=== PATIENT | female | born 1945 | race Caucasian/White ===

== ENCOUNTER 2017-07-15 23:11 | Emergency (ER) | payer MEDICARE, BC ==
[~2017-07-15] VITALS: Ht 160 cm; Wt 75.9 kg
[2017-07-15 23:15] VITALS: BP 151/77; TEMP 98.7
[2017-07-15] MEDS ORDERED: GLUCOPHAGE500 MG/TAB PO (23:23)
[2017-07-15] MEDS ORDERED: GLUCOSAMINE & C1 CA2 PO (23:23)
[2017-07-15] MEDS ORDERED: B-121000 MCG PO (23:24)
[2017-07-15] MEDS ORDERED: CALCIUM CARBON650 M2 (23:24)
[2017-07-15] MEDS ORDERED: OCUVITE1 TA1 PO (23:24)
[2017-07-16 00:18] LABS: BASO # 0.1 (0.0-0.2); BASO % 0.7 % (0.0-2.0); EOS # 0.1 (0.0-0.7); EOS % 1.6 % (0-4.0); GRAN # 4.5 (1.4-6.5); GRAN % 67.7 % (42.2-75.2); HEMATOCRIT 36.2 % (37.0-47.0); HEMOGLOBIN 12.6 g/dl (12.5-16.0); LYMPH # 1.4 (1.2-3.4); LYMPH % 21.5 % (20.0-51.0); MEAN CELL VOLUME 88 fl (80.0-100.0); MEAN CORPUSCULAR HEMOGLOBIN 31 pg (27.0-31.0); MEAN CORPUSCULAR HGB CONC 35 g/dl (33.0-37.0); MEAN PLATELET VOLUME 8.9 fl (7.4-10.4); MONO # 0.5 (0.1-0.6); MONO % 8.1 % (1.7-9.3); PLATELET COUNT 239 K/mm3 (130-400); RED BLOOD COUNT 4.13 M/mm3 (4.10-5.30); REDCELL DISTRIBUTION WIDTH-CV 12.1 % (11.5-14.5); WHITE BLOOD COUNT 6.7 K/mm3 (4.8-10.8)
[2017-07-16 00:37] LABS: PH 7 (5-8); SQUAMOUS EPITHELIAL 0-2 /hpf; URINE APPEARANCE Clear; URINE BACTERIA None Seen /hpf; URINE BILIRUBIN Negative (NEGATIVE); URINE BLOOD Negative (NEGATIVE); URINE COLOR Amber; URINE GLUCOSE Negative (NEGATIVE); URINE KETONE Negative (NEGATIVE); URINE RBC 0-2 /hpf; URINE UROBILINOGEN >=4.0 mg/dL (NEGATIVE); URINE WBC 0-2 /hpf
[2017-07-16 00:37] LABS: ADJUSTED CALCIUM 8.8 mg/dL (8.4-10.2); ALANINE AMINOTRANSFERASE 19 U/L (9-52); ALBUMIN 4.2 gm/dL (3.5-5.0); ALKALINE PHOSPHATASE 78 U/L (50-136); ANION GAP 9 mmol/L (7-16); BILIRUBIN,TOTAL 0.6 mg/dL (0.0-1.0); BLOOD UREA NITROGEN 13 mg/dL (7-17); CARBON DIOXIDE 24 mmol/L (22-30); CHLORIDE 95 mmol/L (98-107); CREATININE, serum 1.04 mg/dL (0.52-1.25); GLUCOSE 110 mg/dL (74-106); POTASSIUM 3.8 mmol/L (3.4-5.0); SODIUM 128 mmol/L (137-145); TOTAL PROTEIN 7.6 gm/dL (6.4-8.2)
[2017-07-16 00:39] LABS: C-REACTIVE PROTEIN < 0.5 mg/dL (0.0-0.9)
[2017-07-16 02:07] VITALS: PULSE 79
== END 2017-07-16 02:08 | disposition home or self-care (01) ==
LOC: COL.ER 23:11
PROVIDERS: Emergency Medicine
DX: R10.30 Lower abdominal pain, unspecified (principal); Z98.51 Tubal ligation status; Z79.84 Long term (current) use of oral hypoglycemic drugs; Z85.821 Personal history of Merkel cell carcinoma; Z85.118 Personal history of other malignant neoplasm of bronchus and lung

== ENCOUNTER 2018-06-02 10:46 | Emergency (ER) | payer MEDICARE, BC ==
[~2018-06-02] VITALS: Ht 160 cm; Wt 78.2 kg
[2018-06-02 10:46] VITALS: TEMP 97.9
[~2018-06-02 10:46] MED LIST: B-121000 MCG PO; CALCIUM CARBON650 M2; GLUCOPHAGE500 MG/TAB PO; GLUCOSAMINE & C1 CA2 PO; OCUVITE1 TA1 PO
[2018-06-02] MEDS ORDERED: VITAMIND3 5000 PO (10:56)
[2018-06-02] MEDS ORDERED: MYRBETR50MG PO (10:57)
[2018-06-02] MEDS ORDERED: CRANBERRY450 MG PO (10:57)
[2018-06-02] MEDS ORDERED: MELATONIN5 M1 PO (10:58)
[2018-06-02 11:07] LABS: BASO % 0.4 % (0.0-2.0); EOS # 0.1 (0.0-0.7); EOS % 0.9 % (0-4.0); GRAN # 4.6 (1.4-6.5); GRAN % 65.4 % (42.2-75.2); HEMOGLOBIN 11.8 g/dl (12.5-16.0); LYMPH # 1.8 (1.2-3.4); LYMPH % 26.1 % (20.0-51.0); MEAN CELL VOLUME 90 fl (80.0-100.0); MEAN CORPUSCULAR HEMOGLOBIN 30 pg (27.0-31.0); MEAN CORPUSCULAR HGB CONC 34 g/dl (33.0-37.0); MEAN PLATELET VOLUME 9.1 fl (7.4-10.4); MONO # 0.5 (0.1-0.6); MONO % 7.1 % (1.7-9.3); PLATELET COUNT 223 K/mm3 (130-400); RED BLOOD COUNT 3.91 M/mm3 (4.10-5.30); REDCELL DISTRIBUTION WIDTH-CV 12.4 % (11.5-14.5)
[2018-06-02 11:08] LABS: HEMATOCRIT 35.2 % (37.0-47.0)
[2018-06-02 11:18] LABS: ALANINE AMINOTRANSFERASE 27 U/L (9-52); ALBUMIN 3.6 gm/dL (3.5-5.0); ALKALINE PHOSPHATASE 65 U/L (50-136); ANION GAP 9 mmol/L (7-16); AST,SGOT 21 U/L (15-37); BILIRUBIN,TOTAL 0.3 mg/dL (0.0-1.0); BLOOD UREA NITROGEN 22 mg/dL (7-17); CALCIUM 8.4 mg/dL (8.4-10.2); CARBON DIOXIDE 25 mmol/L (22-30); CHLORIDE 102 mmol/L (98-107); CREATINE KINASE 47 U/L (30-135); CREATININE, serum 0.99 mg/dL (0.52-1.25); GLUCOSE 117 mg/dL (74-106); LIPASE 165 U/L (23-300); MAGNESIUM 1.7 mg/dL (1.6-2.3); SODIUM 135 mmol/L (137-145); TOTAL PROTEIN 6.7 gm/dL (6.4-8.2)
[2018-06-02 11:31] LABS: TROPONIN-I < 0.012 ng/mL (0.000-0.034)
[2018-06-02 12:44] LABS: COLLECTION METHOD CATHETER
[2018-06-02 12:52] LABS: MUCOUS Present /lpf; PH 7 (5-8); SQUAMOUS EPITHELIAL 0-2 /hpf; URINE APPEARANCE Clear; URINE BACTERIA None Seen /hpf; URINE BILIRUBIN Negative (NEGATIVE); URINE BLOOD Negative (NEGATIVE); URINE COLOR Yellow; URINE GLUCOSE Negative (NEGATIVE); URINE KETONE Negative (NEGATIVE); URINE LEUKOCYTE ESTERASE Negative (NEGATIVE); URINE NITRATE Negative (NEGATIVE); URINE PROTEIN(semi-quant) Negative (NEGATIVE); URINE RBC 0-2 /hpf; URINE UROBILINOGEN Negative (NEGATIVE)
[2018-06-02 13:15] VITALS: BP 159/91; PULSE 80
== END 2018-06-02 13:16 | disposition home or self-care (01) ==
LOC: COL.ER 10:46
PROVIDERS: Emergency Medicine
DX: R55 Syncope and collapse (principal); Z98.51 Tubal ligation status; Z88.6 Allergy status to analgesic agent; Z88.5 Allergy status to narcotic agent; Z79.84 Long term (current) use of oral hypoglycemic drugs
CPT/HCPCS: J7030

== ENCOUNTER → 2019-07-05 | Outpatient (CLI) | payer MEDICARE, BC ==
[~2019-07-05] MED LIST changes: +CRANBERRY450 MG PO; +MELATONIN5 M1 PO; +MYRBETR50MG PO; +VITAMIND3 5000 PO
[2019-07-05 10:26] LABS: CALCIUM 9.1 mg/dL (8.4-10.2); CREATININE, serum 0.94 (0.52-1.25); POTASSIUM 4.2 mmol/L (3.4-5.0)
== END ==
LOC: COL.RAD 09:44
PROVIDERS: Internal Medicine Pulmonary Disease
DX: Z01.812 Encounter for preprocedural laboratory examination (principal); R91.8 Other nonspecific abnormal finding of lung field
CPT/HCPCS: Q9967

== ENCOUNTER → 2021-12-21 | Outpatient (RCR) | payer MEDICARE, BC | END | disposition home or self-care (01) | LOC: MKS.ESL.PT | DX: M54.50 Low back pain, unspecified (principal) | CPT/HCPCS: G0283-GP ==

== ENCOUNTER → 2022-01-18 | Outpatient (RCR) | payer MEDICARE, BC | END | disposition home or self-care (01) | LOC: MKS.ESL.PT | DX: M54.50 Low back pain, unspecified (principal) ==

== ENCOUNTER 2022-02-02 10:30 | Outpatient (RCR) | payer MEDICARE, BC | END 2022-02-02 14:07 | disposition home or self-care (01) | LOC: MKS.ESL.PT 10:30 | DX: M54.50 Low back pain, unspecified (principal) ==

== ENCOUNTER 2024-08-21 06:24 | Inpatient (IN) | payer MEDICARE, BC ==
[2024-08-21] VITALS (8 sets, daily range): BP systolic 120–149; BP diastolic 64–73; PULSE 89–109; TEMP 97.3–98.7
[~2024-08-21] VITALS: Ht 157.5 cm; Wt 69.5 kg
[~2024-08-21 06:24] MED LIST changes: +AMOXICILLIN 8751 TAB PO; +BETAPACE 80MG80 MG PO; +CARDIZEM CD 18180 MG PO; +COZAAR 25MG25 MG/TAB PO; +COZAAR 50MG50 MG/TAB PO; +CRANBERRY400 M2 PO; -CRANBERRY450 MG PO; +ECHINACEA400 MG PO; +ELIQUIS 5MG PO; +FOSAMAX 70MG TA70 MG PO; +MULTAQ400 MG PO; +NORVASC 5MG5 MG/TAB PO; +PHARMASSURE ZIN50 MG PO; +PREVIDENT5000PLUS DT; +TESSALON P100 MG/CAP PO; +VITAMINC1000TA PO; +VOLTAREN GEL 1%1 TU TP
[2024-08-21] MEDS ORDERED: Morphine 4 MG/ML VIAL IV ONE (07:00)
[2024-08-21 07:03] LABS: ALBUMIN 3.1 g/dL (3.4-4.8); BILIRUBIN,TOTAL 1.5 mg/dL (0.2-1.2); CALCIUM 9.4 mg/dL (8.4-10.2); MAGNESIUM 1.7 mg/dL (1.6-2.6); POTASSIUM 3.8 mEq/L (3.5-4.5); TOTAL PROTEIN 7.6 g/dl (6.2-8.1)
[2024-08-21 07:09] LABS: TROPONIN-I 0.011 ng/mL (0.00-0.033)
[2024-08-21] MEDS ORDERED: Iohexol 300 - 100 ML VIAL IV ONE (07:21)
[2024-08-21] MEDS ORDERED: NS 100 ML IV SCH (07:21)
[2024-08-21 08:20] LABS: BASO # 0.1 K/mm3 (0.0-0.2); BASO % 0.3 % (0.0-2.0); GRAN # 13.9 K/mm3 (1.4-6.5); GRAN % 90.9 % (42.2-75.2); HEMATOCRIT 35.7 % (37.0-47.0); LYMPH # 0.5 K/mm3 (1.2-3.4); LYMPH % 3.3 % (20.0-51.0); MEAN CELL VOLUME 90 fl (80.0-100.0); MEAN CORPUSCULAR HEMOGLOBIN 30 pg (27-31); MEAN CORPUSCULAR HGB CONC 34 g/dl (33.0-37.0); MEAN PLATELET VOLUME 9.2 fl (7.4-10.4); MONO # 0.8 K/mm3 (0.1-0.6); PLATELET COUNT 251 K/mm3 (130-400); RED BLOOD COUNT 3.98 M/mm3 (4.10-5.30); REDCELL DISTRIBUTION WIDTH-CV 12.2 % (11.5-14.5)
[2024-08-21] MEDS ORDERED: LR 1,000 ML IV SCH (09:30)
[2024-08-21] MEDS ORDERED: Morphine 4 MG/ML VIAL IV PRN (09:30)
[2024-08-21] MEDS ORDERED: Ondansetron 4 MG/2 ML VIAL IV PRN (09:30)
--- NOTE | 2024-08-21 10:12 | NUR ---
Patient arrived to room 351, from the ED, with diagnosis of cholecystitis.
--- NOTE | 2024-08-21 11:59 | NUR ---
Patient arrived to room 351, with diagnosis of cholecystitis, from the ED at approximately 1000. Pt rates RUQ pain 5/10 but declines offer for pain medication. Colabo completed med reconcilliation. Patient doesn't have her updated medication list with her. The patient's daughter Tammie rivera is to bring it with her later today. LR started to LAC at 125ml/hr. Patient placed on fall precautions.
--- NOTE | 2024-08-21 13:29 | NUR ---
Initial visit; Patient thanked Sewing Machine Bobbin Winder for looking in on her and offering encouragement and prayer prior to her surgical procedure. Sewing Machine Bobbin Winder assured patient that she has a wonderful Surgeon, that she is in good hands with him and his nurses and the rest of the staff. Everyone is here to take good care of her. Sewing Machine Bobbin Winder offered God's blessings.
--- NOTE | 2024-08-21 15:34 | NUR ---
Patient report RLQ pain 1/10. Reports headache, rating pain 1/10. Declines offer for pain medicaiton.
--- NOTE | 2024-08-21 20:32 | NUR ---
PATIENT RESTING IN BED WATCHING TV. BEGAN HAVING SUDDNE SEVERE ABDOMINAL PAIN DURING ASSESSMENT. CALL LIGHT WITHIN REACH. EXPRESSES UNDERSTANDING OF NEED TO BE NPO AFTER MIDNIGHT. BED IS LOCKED AND IN LOW POSITION.
[2024-08-22] VITALS (11 sets, daily range): BP systolic 98–129; BP diastolic 61–80; PULSE 85–110; TEMP 98–100.1
--- NOTE | 2024-08-22 06:25 | NUR ---
LAB CALLED TO INFORM OF POSITIVE BLOOD CULTURE. RESULTS POSITIVE FOR GRAM NEGATIVE RODS, KLEBSIELLA PNEUMONIA
[2024-08-22 07:38] LABS: ALBUMIN 2.2 g/dL (3.4-4.8); BILIRUBIN,DIRECT 0.8 mg/dL (0.0-0.5); BILIRUBIN,TOTAL 1.3 mg/dL (0.2-1.2)
[2024-08-22 08:10] LABS: HEMATOCRIT 31.2 % (37.0-47.0); MEAN CELL VOLUME 98 fl (80.0-100.0); MEAN CORPUSCULAR HEMOGLOBIN 34 pg (27-31); MEAN CORPUSCULAR HGB CONC 35 g/dl (33.0-37.0); MEAN PLATELET VOLUME 9.5 fl (7.4-10.4); PLATELET COUNT 241 K/mm3 (130-400); REDCELL DISTRIBUTION WIDTH-CV 14.8 % (11.5-14.5)
[2024-08-22] MEDS ORDERED: Losartan 50 MG TAB PO SCH (09:00)
[2024-08-22] MEDS ORDERED: amLODIPine 5 MG TAB PO SCH (09:00)
--- NOTE | 2024-08-22 11:49 | NUR ---
optical worker attended clinical rounding and was informed by RN pt has episodes of forgetfullness and they have spoke with her wolsildu-ep-hox, Tammie. SW called listed contact as Kailash, son [phone]. He confirmed pt lives tamir in [place]. She sees Dr. Smyth for PCP needs and obtains medications from [facility] with no difficulties. He verified pt has Medicare A/B and BCBS insurance. Pt is independent with ADLS and uses no DME. Kailash was not aware of any DPOA-HC being made. He reports pt's , Talib is living and resides at [facility], but is not an appropriate decison-maker for pt. Kailash the reports he is patient's step-son and pt's only biological child is Juan. He did not have Juan's number, but reports pt should have it as he travels often. PT/OT Pending Discharge Plan: home likely
--- NOTE | 2024-08-22 12:07 | NUR ---
Pt transported to MRI and off unit. RN aware.
--- NOTE | 2024-08-22 13:12 | NUR ---
D: Skid Adzer stopped by room on rounds. A: Pt was resting and content and with dauther in law and friend in the room. Pt has no needs right now. P: Skid Adzer informed pt that if she needed anything from the budget accountant area to let her nurse know. Skid Adzer will follow up as needed.
--- NOTE | 2024-08-22 14:33 | NUR ---
1250- pt arrived via stretcher back to unit. RN aware. Pt fluids restarted and pt laying in bed with the call betts within reach.
--- NOTE | 2024-08-22 16:22 | NUR ---
1020- Patient is A&Ox4 and sitting up in bed. Pt reports RUQ pain 7/. Pt given morphine 2mg IV push. Pt tolerated treatment well. Skin is intact, on room air and on a fat controlled diet/NPO. LR infusing at 125mL/h through a 20G LAC IV. Site noted to be dry, clean and intact. Plan for patient to go to [facility]. Patient verbalized understanding of plan. Call betts within reach.
--- NOTE | 2024-08-22 16:30 | NUR ---
1550- Dr. Guzman returned called about findings of MRCP. Patient does not need ERCP at this time. Dr. Guzman noted 1200 vital signs to be abnormal. RN instructed to recheck VS. 1600- Vital signs BP- 121/70, HR- 76, O2 sat- 91%, RR- 18, temperature- 98.0F. Dr. Guzman made aware of vital signs and no new orders recieved at this time. Dr. Guzman states he will come see the patient before he leaves today.
[2024-08-22] MEDS ORDERED: Indocyanine Green 12.5 MG in Water For Injection,Sterile 2.5 ML IV ONE (16:45)
[2024-08-22 17:13] LABS: COLLECTION METHOD CLEAN CATCH
[2024-08-22 17:21] LABS: ALBUMIN 2.3 g/dL (3.4-4.8); BILIRUBIN,TOTAL 1.4 mg/dL (0.2-1.2); CALCIUM 8.5 mg/dL (8.4-10.2); CREATININE, serum 0.98 mg/dL (0.57-1.11); POTASSIUM 3.7 mEq/L (3.5-4.5); TOTAL PROTEIN 6.4 g/dl (6.2-8.1)
[2024-08-22] MEDS ORDERED: dilTIAZem 25 MG/5 ML VIAL IV ONE (17:30)
--- NOTE | 2024-08-22 17:30 | NUR ---
Drawing Kiln Supervisor calls to report patient converted to afib. Rate 130's. Patient resting in bed. Denies pain, SOA or palpitations. Dr. Guzman notified via telephone. Order rec'd to still administer IC green. Dr. Harrison notified via telephone. Order rec'd for IV Cardizem. INOCENCIO Padron in OR notified. Maria Guadalupe with [facility] notified via telephone.
[2024-08-22 17:33] LABS: PH 5.5 (5.0-8.5); URINE APPEARANCE TURBID (CLEAR/HAZY); URINE BLOOD 2+ (NEGATIVE); URINE COLOR Dark Yellow (YELLOW); URINE GLUCOSE NEGATIVE (NEGATIVE); URINE KETONE TRACE (NEGATIVE); URINE NITRATE NEGATIVE (NEGATIVE); URINE PROTEIN(semi-quant) 3+ (NEGATIVE)
--- NOTE | 2024-08-22 17:58 | NUR ---
1740- pt converted into afib on monitoring engineer. Pt assessed and asymptomatic. Dr. Melina Harrison made aware in change of patient condition. Orders recieved for Cardizem 10mg IV push. 1745- Medication given. Patient tolerated treatment well. 1750- Patient heart rate lowering. MD aware.
[2024-08-22 18:05] LABS: AMORPHOUS CRYSTAL PRESENT (NOT PRESENT); MUCOUS PRESENT (NOT PRESENT); SQUAMOUS EPITHELIAL 0-2 /hpf (0-10); URINE BACTERIA MANY /hpf (NONE SEEN); URINE RBC 0-2 /hpf (0-2)
[2024-08-22 18:15] LABS: HEMOGLOBIN 11.7 g/dl (12.5-16.0); MEAN CELL VOLUME 96 fl (80.0-100.0); MEAN CORPUSCULAR HEMOGLOBIN 34 pg (27-31); MEAN CORPUSCULAR HGB CONC 36 g/dl (33.0-37.0); MEAN PLATELET VOLUME 9.7 fl (7.4-10.4); PLATELET COUNT 262 K/mm3 (130-400); REDCELL DISTRIBUTION WIDTH-CV 14.7 % (11.5-14.5)
[2024-08-22 18:18] LABS: HEMATOCRIT 32.5 % (37.0-47.0)
[2024-08-22] MEDS ORDERED: Rocuronium 50 MG/5 ML Multi-Dose VIAL ONE (18:18)
[2024-08-22] MEDS ORDERED: fentaNYL 50 MCG/ML 2 ML VIAL ONE ×2 (18:18→20:48)
[2024-08-22] MEDS ORDERED: Ondansetron 4 MG/2 ML VIAL ONE ×2 (18:21→20:25)
[2024-08-22] MEDS ORDERED: dexAMETHasone 10 MG/ML VIAL ONE (18:21)
[2024-08-22] MEDS ORDERED: NS 10 ML IV ONE ×2 (18:21)
[2024-08-22] MEDS ORDERED: Glycopyrrolate 0.2 MG/ML 1 ML VIAL ONE (18:21)
--- NOTE | 2024-08-22 18:40 | NUR ---
Pt to the OR, via bed, for cholecystectomy. Phone call to Tammie CALIX, to update per patient request.
[2024-08-22] MEDS ORDERED: Topical Skin Adhesive 1 EACH (1 ML) TOP ONE ×2 (18:55→19:54)
--- NOTE | 2024-08-22 18:55 | NUR ---
UA ordered ED not collected- collected specimen this evening and sent to lab. Results called to GULSHAN Garcia. Order rec'd for urine culture. Order placed. Critical WBC result reported to Radha- no new orders.
[2024-08-22] MEDS ORDERED: Iohexol 350 - 100 ML VIAL BILE DUCT ONE (18:56)
[2024-08-22] MEDS ORDERED: fentaNYL 50 MCG/ML 1 ML SYRINGE/VIAL [PACU/SDC ONLY] IV PRN (20:15)
[2024-08-22] MEDS ORDERED: Ondansetron 4 MG/2 ML VIAL IV PRN (20:15)
[2024-08-22] MEDS ORDERED: HYDROmorphone 1 MG/1 ML SYRINGE [PACU/SDC ONLY] IV PRN (20:15)
--- NOTE | 2024-08-22 21:39 | NUR ---
PATIENT ARRIVED BACK TO ROOM AT 2120. REPORTING ABDOMINAL PAIN 02/28 BUT IS NOT YET READY FOR PAIN MEDICATION, ADVISED THAT THE MEDICATION IS AVAILABLE FOR HER PAIN RELIEF AND IF SHE NEEDS ANYTHING TO LET US KNOW. PROVIDED ICE WATER AT PATIENT REQUEST AND IS TOLERATING WELL. FAMILY MEMBER AT BEDSIDE. CALL LIGHT WITHIN REACH. BED IS LOCKED AND IN LOW POSITION
[2024-08-23] VITALS (13 sets, daily range): BP systolic 111–138; BP diastolic 64–78; PULSE 65–93; TEMP 97.6–98.5
[2024-08-23 06:51] LABS: BILIRUBIN,TOTAL 0.9 mg/dL (0.2-1.2); CALCIUM 8.2 mg/dL (8.4-10.2); CREATININE, serum 0.97 mg/dL (0.57-1.11); MAGNESIUM 1.7 mg/dL (1.6-2.6); POTASSIUM 3.9 mEq/L (3.5-4.5)
[2024-08-23 07:38] LABS: HEMOGLOBIN 10.8 g/dl (12.5-16.0); MEAN CORPUSCULAR HEMOGLOBIN 30 pg (27-31); MEAN CORPUSCULAR HGB CONC 33 g/dl (33.0-37.0); MEAN PLATELET VOLUME 9.9 fl (7.4-10.4); PLATELET COUNT 215 K/mm3 (130-400); RED BLOOD COUNT 3.61 M/mm3 (4.10-5.30); REDCELL DISTRIBUTION WIDTH-CV 12.8 % (11.5-14.5)
[2024-08-23 07:39] LABS: HEMATOCRIT 32.6 % (37.0-47.0)
[2024-08-23 07:40] LABS: MEAN CELL VOLUME 90 fl (80.0-100.0)
[2024-08-23] MEDS ORDERED: HYDROmorphone 2 MG TAB PO PRN (07:45)
[2024-08-23 08:06] LABS: BAND 12 % (0-10); LYMPHOCYTE 3 % (20.0-51.0); NEUTROPHILS 81 % (42.0-75.2); PLATELET ESTIMATE NORMAL (NORMAL)
--- NOTE | 2024-08-23 09:30 | NUR ---
Pt doing well today, some complaints of pain but states she does not want to take any pain medication. She is tolerating clear liquids at this time. Informed her that I would notify surgeon to see about advancing her diet.
--- NOTE | 2024-08-23 11:53 | NUR ---
IVF stopped at this time per order. Pt diet advanced to low fat per Dr Guzman. Educated pt on diet order. Pt reports that she is having some pain, but denies the need for pain medication. Lunch tray ordered for her, will continue to monitor
--- NOTE | 2024-08-23 14:30 | NUR ---
Pt has order for IS but does not have one in her room. Notified RT of this
--- NOTE | 2024-08-23 14:44 | NUR ---
ZARIA met with pt and her [id number], Tammie to provide Medicare.gov list of HH agencies. Pt was hesitant at first, but Tammie encouraged pt to consider this for her own benefit due to being weaker now. ZARIA obtained pt's son, Juan [phone] number. Discharge Plan: home with HH-- TBD
[2024-08-23] MEDS ORDERED: Acetaminophen 325 MG TAB PO PRN (15:45)
--- NOTE | 2024-08-23 16:12 | NUR ---
Dr Guzman in recently to see pt. Pt stating that she was having some pain, but she has been refusing pain medication. Discussed her getting some tylenol and pt reports not having any issues with tylenol. Order entered and pt was given some. Stated that I would assist her with a walk after a while
--- NOTE | 2024-08-23 19:41 | NUR ---
PATIENT RESTING IN BED WATCHING TV. STATES ABDOMINAL PAIN IS DOING MUCH BETTER, RATES PAIN 1-2/10. DENIES ANY NAUSEA. CALL LIGHT WITHIN REACH. BED IS LOCKED AND IN LOW POSITION.
[2024-08-24] VITALS (12 sets, daily range): BP systolic 120–157; BP diastolic 70–80; PULSE 58–73; TEMP 97.5–98.6
--- NOTE | 2024-08-24 07:11 | NUR ---
PATIENT RESTING IN BED. PATIENT REPORTS NO COMPLAINTS OR CONCERNS AT THIS TIME. STUDENT NURSE SOFI ORDERS PATIENT'S BREAKFAST PER DIET ORDERS. PATIENT LAYING SUPINE IN BED WITH CALL LIGHT WITHIN REACH.
--- NOTE | 2024-08-24 07:55 | NUR ---
Patient is A&Ox4 and is laying in bed but ambulates x1 assist. Patient reports 2/10 pain at her incision sites and her abdomen. She reports is aching and is a constant pain. She is refusing SCDs and pain medication at this time. Patient has a left 20g LAC that is saline locked. Patient denies N/V/D at this time. Patient educated to use incentive spirometer qhourly to help prevent any infections while hospitalized. Patient demonestrated correct use of incentive spirometer. Patient educated to call nurse if pain worsens or any new complaints arise. Patient verbalized understanding. Bed lowered and locked, call betts within reach.
[2024-08-24 08:01] LABS: ALBUMIN 1.9 g/dL (3.4-4.8); BILIRUBIN,TOTAL 0.6 mg/dL (0.2-1.2); CALCIUM 8.3 mg/dL (8.4-10.2); CREATININE, serum 0.94 mg/dL (0.57-1.11); POTASSIUM 3.9 mEq/L (3.5-4.5); TOTAL PROTEIN 5.8 g/dl (6.2-8.1)
[2024-08-24 08:17] LABS: HEMOGLOBIN 10.6 g/dl (12.5-16.0); MEAN CORPUSCULAR HEMOGLOBIN 38 pg (27-31); MEAN CORPUSCULAR HGB CONC 39 g/dl (33.0-37.0); MEAN PLATELET VOLUME 9.9 fl (7.4-10.4); PLATELET COUNT 273 K/mm3 (130-400); RED BLOOD COUNT 2.81 M/mm3 (4.10-5.30)
[2024-08-24 08:38] LABS: MEAN CELL VOLUME 96 fl (80.0-100.0)
--- NOTE | 2024-08-24 08:40 | NUR ---
Critical result called WBC of 20.5. Critical lab communicated to Melina Harrison MD. No new orders receieved at this time. Will monitor for any changes.
[2024-08-24 10:00] LABS: ANISOCYTOSIS 1+; BAND 12 % (0-10); LYMPHOCYTE 4 % (20.0-51.0); NEUTROPHILS 76 % (42.0-75.2); PLATELET ESTIMATE NORMAL (NORMAL)
--- NOTE | 2024-08-24 10:03 | NUR ---
Patient transported back to room 309 via stretcher from endoscopy post colonoscopy. Pt is A&Ox4, VS stable and returned back to bed. Bed lowered and locked, call betts within reach and family bedside with patient. Normal saline at 125mL/h running through right hand IV. Post OP blood pressures in progress.
--- NOTE | 2024-08-24 13:46 | NUR ---
PATIENT HAD A BED BATH AND FINISHED WALKING WITH PT AND SAT BACK INTO HER BED. PATIENT ABOUT TO RECEIVE ZOSIN INFUSION. STUDENT NURSE PRIMED IV. TELE LEADS PLACED BACK ON PATIENT. PATIENT HAD NO COMPLAINTS. CALL LIGHT WITHIN REAC
--- NOTE | 2024-08-24 14:01 | NUR ---
straightedge worker attended clinical rounding and was informed pt is awaiting clearance from surgeon, but could likely discharge today. ZARIA met with pt in the morning and she was still deciding on which HH agency. ZARIA was later informed by Rios at [facility] pt was interested. ZARIA confirmed with pt and she was agreeable to [facility]. ZARIA Lan faxed referral to [facility] . Discharge Plan: home with [facility]
[2024-08-24] MEDS ORDERED: AMOXICILLIN 8751 TAB PO (14:14)
--- NOTE | 2024-08-24 15:22 | NUR ---
criminal justice social worker was notified patient may not discharge today. will continue to monitor and send discharge orders to [facility] once ready to discharge. Discharge plan: Home with [facility]
[2024-08-24] MEDS ORDERED: Amoxicillin/Clavulanate K+ 875/125 MG TAB PO SCH (17:00)
--- NOTE | 2024-08-24 20:00 | NUR ---
PT AWAKE AND RESTING IN BED. AMBULATED TO TOILET X1 STANDBY ASSIST. SCHEDULED MEDS GIVEN PER eMAR. PRN TYLENOL GIVEN FOR PAIN IN ABDOMEN, PT RATES 3/10. ENCOURAGED IS USE. NO FUTHER CONCERNS. BED ALARM ON AND CALL LIGHT WITHIN REACH.
[2024-08-24] MEDS ORDERED: Apixaban 5 MG TABLET PO SCH (21:00)
[2024-08-25] VITALS (13 sets, daily range): BP systolic 120–174; BP diastolic 62–104; PULSE 65–82; TEMP 97.7–99.3
[2024-08-25 06:37] LABS: ALBUMIN 1.9 g/dL (3.4-4.8); BILIRUBIN,TOTAL 0.6 mg/dL (0.2-1.2); CALCIUM 8.1 mg/dL (8.4-10.2); CREATININE, serum 0.83 mg/dL (0.57-1.11); POTASSIUM 3.1 mEq/L (3.5-4.5); TOTAL PROTEIN 5.6 g/dl (6.2-8.1)
[2024-08-25 07:21] LABS: HEMOGLOBIN 10.8 g/dl (12.5-16.0); MEAN CELL VOLUME 94 fl (80.0-100.0); MEAN CORPUSCULAR HEMOGLOBIN 35 pg (27-31); MEAN CORPUSCULAR HGB CONC 37 g/dl (33.0-37.0); MEAN PLATELET VOLUME 9.4 fl (7.4-10.4); PLATELET COUNT 307 K/mm3 (130-400); RED BLOOD COUNT 3.06 M/mm3 (4.10-5.30); REDCELL DISTRIBUTION WIDTH-CV 15.3 % (11.5-14.5)
--- NOTE | 2024-08-25 07:23 | NUR ---
Assessment completed. SBA to bathroom. Patient had a large bowel movement. Rates abdominal pain 6/10 at this time. Fall precautions in place.
[2024-08-25 07:27] LABS: HEMATOCRIT 28.9 % (37.0-47.0)
[2024-08-25 08:15] LABS: BAND 3 % (0-10); LYMPHOCYTE 17 % (20.0-51.0); NEUTROPHILS 74 % (42.0-75.2); PLATELET ESTIMATE NORMAL (NORMAL)
[2024-08-25] MEDS ORDERED: *Potassium Replacement Protocol MC SCH (10:30)
[2024-08-25] MEDS ORDERED: Potassium Bicarbonate/Citrate 20 MEQ Effervescent TAB PO SCH (10:30)
[2024-08-25] MEDS ORDERED: COZAAR 50MG50 MG/TAB PO (14:00)
[2024-08-25] MEDS ORDERED: NORVASC 5MG5 MG/TAB PO (14:00)
--- NOTE | 2024-08-25 15:25 | NUR ---
Supervisor Sintering Plant faxed updates to [facility].
--- NOTE | 2024-08-25 19:18 | NUR ---
Patient reports feeling improved since this morning. Medicated with po dilaudid as ordered prn for pain. Pt reported relief but also stated her stomach just felt "upset." Obtained order for pantoprazole which was administered. Pt had concerns about going home alone and spoke with some friend/family members who will be available to stay with her temporarily. Patient also voiced she would like to have home health. Instructed patient that the perinatal social worker would be notified- will notify tomorrow. Pt SBA to bathroom. Fall precautions in place.
--- NOTE | 2024-08-25 20:00 | NUR ---
PT AWAKE AND RESTING IN BED. MEWS SCORE OF 2. NOTIFIED CHARGE NURSE, BHUMI. PT STABLE AND C/O OF MILD DISCOMFORT. PRN PAIN MEDS OFFERED AND REFUSED. SCHEDULED MEDS GIVEN PER eMAR. NO FURTHER CONCERNS AT THIS TIME. BED ALARM ON AND CALL LIGHT WITHIN REACH.
[2024-08-25] MEDS ORDERED: hydrALAZINE 10 MG TAB PO PRN (23:45)
[2024-08-26] VITALS (10 sets, daily range): BP systolic 125–148; BP diastolic 75–85; PULSE 69–78; TEMP 97.8–98.8
[2024-08-26 07:34] LABS: ALBUMIN 1.9 g/dL (3.4-4.8); BILIRUBIN,TOTAL 0.7 mg/dL (0.2-1.2); CALCIUM 8.2 mg/dL (8.4-10.2); CREATININE, serum 0.78 mg/dL (0.57-1.11); MAGNESIUM 1.5 mg/dL (1.6-2.6); POTASSIUM 3.5 mEq/L (3.5-4.5); TOTAL PROTEIN 5.7 g/dl (6.2-8.1)
[2024-08-26] MEDS ORDERED: *Potassium Replacement Protocol MC SCH (08:00)
[2024-08-26] MEDS ORDERED: Potassium Bicarbonate/Citrate 20 MEQ Effervescent TAB PO SCH (08:00)
--- NOTE | 2024-08-26 08:01 | NUR ---
Magnesium result called to Dr. Harriosn. No new orders received at this time.
[2024-08-26 08:07] LABS: HEMOGLOBIN 11.9 g/dl (12.5-16.0); MEAN CELL VOLUME 94 fl (80.0-100.0); MEAN CORPUSCULAR HEMOGLOBIN 37 pg (27-31); MEAN CORPUSCULAR HGB CONC 39 g/dl (33.0-37.0); MEAN PLATELET VOLUME 9.2 fl (7.4-10.4); PLATELET COUNT 374 K/mm3 (130-400); RED BLOOD COUNT 3.26 M/mm3 (4.10-5.30); REDCELL DISTRIBUTION WIDTH-CV 15.8 % (11.5-14.5)
[2024-08-26 08:09] LABS: HEMATOCRIT 30.7 % (37.0-47.0)
[2024-08-26] MEDS ORDERED: Magnesium Sulfate 4% 50 ML IV ONE (08:15)
[2024-08-26 08:30] LABS: ANISOCYTOSIS 1+; BAND 3 % (0-10); EOSINOPHIL 1 % (0-4); LYMPHOCYTE 14 % (20.0-51.0); NEUTROPHILS 77 % (42.0-75.2); PLATELET ESTIMATE NORMAL (NORMAL)
--- NOTE | 2024-08-26 10:04 | NUR ---
Assessment complete. Pt sitting up in bed eating breakfast. A/O x4 but forgetful at times. Pt reports feeling better today. K+ and Mg+ being replaced per protocol. Denies pain or nausea. Lap sites x5 to abdomen with edges well approximated and no drainage noted.
--- NOTE | 2024-08-26 18:01 | NUR ---
Pt resting in bed at this time. Pt denies pain unless she moves or gets OOB. Denies nausea. Pt resistant to sit in chair for meals but agreed to ambulate in the hallway with physical therapy and to shower today. Fall precautions in place.
--- NOTE | 2024-08-26 20:00 | NUR ---
Assessment complete. A&Ox3. Forgetful. Denies nausea/shortness of breath. Rating pain 5/10 on pain scale-described as generalized body aches. Tylenol given per dr araujo. TELE reporting NSR. VS stable. Currently on RA. Right wrist INT flushes without difficulty-no s/s of infiltration needed. Plan of care discussed for this shift to include meds/pain control/TELE/VS/calling for questions/concerns. Verbalizes understanding. Call light in reach. Will monitor.
[2024-08-27] VITALS (13 sets, daily range): BP systolic 135–152; BP diastolic 57–83; PULSE 57–81; TEMP 97.2–98.8
--- NOTE | 2024-08-27 00:20 | NUR ---
Patient resting eyes closed. NO s/s of pain or discomfort noted. Call light in reach. Bed alarm on. Will monitor.
--- NOTE | 2024-08-27 05:51 | NUR ---
Patient rested well this shift. Denied nausea/shortness of breath. Received tylenol at HS for generalized body aches VS stable. Currently on RA. Right wrist INT flushes without difficulty. TELE reporting SR> Denies current needs. Call light in reach. Will monitor.
[2024-08-27 07:12] LABS: ALBUMIN 1.9 g/dL (3.4-4.8); BILIRUBIN,TOTAL 0.6 mg/dL (0.2-1.2); CALCIUM 8.2 mg/dL (8.4-10.2); CREATININE, serum 0.84 mg/dL (0.57-1.11); TOTAL PROTEIN 5.7 g/dl (6.2-8.1)
[2024-08-27 07:52] LABS: HEMOGLOBIN 11.2 g/dl (12.5-16.0); MEAN CELL VOLUME 96 fl (80.0-100.0); MEAN CORPUSCULAR HEMOGLOBIN 39 pg (27-31); MEAN CORPUSCULAR HGB CONC 40 g/dl (33.0-37.0); MEAN PLATELET VOLUME 9.1 fl (7.4-10.4); PLATELET COUNT 382 K/mm3 (130-400); RED BLOOD COUNT 2.89 M/mm3 (4.10-5.30); REDCELL DISTRIBUTION WIDTH-CV 17.2 % (11.5-14.5)
[2024-08-27 07:55] LABS: HEMATOCRIT 27.8 % (37.0-47.0)
--- NOTE | 2024-08-27 09:00 | NUR ---
Patient awake, alert and oriented. Tolerating breakfast well, denies pain or nausea. Resting in bed, bed in lowest position with call light within reach.
[2024-08-27 09:20] LABS: BAND 5 % (0-10); EOSINOPHIL 2 % (0-4); LYMPHOCYTE 12 % (20.0-51.0); NEUTROPHILS 71 % (42.0-75.2)
[2024-08-27 09:21] LABS: PLATELET ESTIMATE NORMAL (NORMAL)
--- NOTE | 2024-08-27 14:35 | NUR ---
Supervisor Stone met with patient to check in and she stated she now has an infection. Patient confirmed plan for returning home with [facility]. SW faxed updates to [facility].
--- NOTE | 2024-08-27 20:49 | NUR ---
PATIENT RESTING IN BED WATCHING TV. REPORTS DISCOMFORT IN HER ABDOMEN 2/10. DENIES ANY NAUSEA. CALL LIGHT WITHIN REACH. BED IS LOCKED AND IN LOW POSITION.
[2024-08-28] VITALS (7 sets, daily range): BP systolic 145–162; BP diastolic 76–85; PULSE 75; TEMP 98.4–98.7
[2024-08-28 06:46] LABS: BILIRUBIN,TOTAL 0.5 mg/dL (0.2-1.2); CALCIUM 8.2 mg/dL (8.4-10.2); CREATININE, serum 0.85 mg/dL (0.57-1.11); MAGNESIUM 1.8 mg/dL (1.6-2.6); POTASSIUM 3.7 mEq/L (3.5-4.5); TOTAL PROTEIN 5.8 g/dl (6.2-8.1)
[2024-08-28] MEDS ORDERED: Potassium Bicarbonate/Citrate 20 MEQ Effervescent TAB PO SCH (07:30)
[2024-08-28] MEDS ORDERED: *Potassium Replacement Protocol MC SCH (07:30)
[2024-08-28 08:23] LABS: HEMATOCRIT 28.6 % (37.0-47.0); HEMOGLOBIN 9.6 g/dl (12.5-16.0); MEAN CELL VOLUME 89 fl (80.0-100.0); MEAN CORPUSCULAR HEMOGLOBIN 30 pg (27-31); MEAN CORPUSCULAR HGB CONC 34 g/dl (33.0-37.0); MEAN PLATELET VOLUME 10.2 fl (7.4-10.4); PLATELET COUNT 422 K/mm3 (130-400); RED BLOOD COUNT 3.21 M/mm3 (4.10-5.30)
[2024-08-28 09:05] LABS: BAND 5 % (0-10); EOSINOPHIL 2 % (0-4); LYMPHOCYTE 9 % (20.0-51.0); NEUTROPHILS 65 % (42.0-75.2)
[2024-08-28 09:07] LABS: METAMYELOCYTE 6 % (0-0)
[2024-08-28 09:08] LABS: MYELOCYTE 2 % (0-0)
--- NOTE | 2024-08-28 09:20 | NUR ---
Assessment completed. Pt a/o x4. Rates back and RUQ pain 11/30- declines need for medication. SBA to chair. Fall precautions in place.
--- NOTE | 2024-08-28 11:44 | NUR ---
Marketing Support Specialist met with patient to present and review IM form. Patient verbalized understanding and provided signature. SW placed form in chart then provided copy to patient. SW contacted Rios at [facility] and faxed discharge orders. Discharge Plan: Home with [facility]
--- NOTE | 2024-08-28 13:24 | NUR ---
Discharge instructions reviewed with patient- verbalizes understanding. INT to RW d/c'd with cath tip intact. Tele d/c'd. Patient's ride will be here a little after 1500.
--- NOTE | 2024-08-28 14:40 | NUR ---
Patient escorted to private vehicle and discharged home with [facility].
== END 2024-08-28 15:51 | disposition home health service (06) | DRG 417 ==
LOC: COL.ER 06:24 → MEDICAL 07:42
PROVIDERS: Emergency Medicine; Hospitalist; Internal Medicine Gastroenterology; ADMIT Surgery
PROC: 8E0W4CZ Robotic Assisted Procedure of Trunk Region, Percutaneous Endoscopic Approach (ICD-10-PCS; 2024-08-22)
PROC: 0FT44ZZ Resection of Gallbladder, Percutaneous Endoscopic Approach (ICD-10-PCS; principal; 2024-08-22 19:00)
DX: K81.9 Cholecystitis, unspecified (principal); A41.9 Sepsis, unspecified organism; E87.1 Hypo-osmolality and hyponatremia; E87.20 Acidosis, unspecified; N32.81 Overactive bladder; I48.91 Unspecified atrial fibrillation; D64.9 Anemia, unspecified; K82.A1 Gangrene of gallbladder in cholecystitis; I10 Essential (primary) hypertension; Z98.51 Tubal ligation status; Z90.89 Acquired absence of other organs; Z85.821 Personal history of Merkel cell carcinoma; Z88.6 Allergy status to analgesic agent; Z88.5 Allergy status to narcotic agent; Z79.899 Other long term (current) drug therapy; Z79.01 Long term (current) use of anticoagulants
CPT/HCPCS: A9284; G0378; J0690; J1100; J2270; J2405; J2543; J2704; J3010; J3475; J7120; Q9967